=== PATIENT | male | born 1975 | race Caucasian/White ===

== ENCOUNTER 2018-09-16 23:43 | Emergency (ER) | payer OTHER, BC ==
[~2018-09-16] VITALS: Ht 172.7 cm; Wt 127.0 kg
[2018-09-17] MEDS ORDERED: IBUP800 PO (01:34)
[2018-09-17] MEDS ORDERED: CYCL10 PO (01:34)
[2018-10-06] MEDS ORDERED: PROP10 (08:10)
[2018-10-06] MEDS ORDERED: Sulindac200 MG (08:10)
[2018-10-06] MEDS ORDERED: PANT40 (08:10)
[2018-10-06] MEDS ORDERED: DAILY MULTIPLE1 EACH (08:11)
[2018-10-06] MEDS ORDERED: NEXIUM 24HR20 M2 (08:11)
== END 2018-09-17 02:43 | disposition home or self-care (01) ==
LOC: ER 23:43
DX: S39.012A Strain of muscle, fascia and tendon of lower back, initial encounter (principal); Z87.891 Personal history of nicotine dependence; W18.30XA Fall on same level, unspecified, initial encounter
CPT/HCPCS: 72100; 96372; 99283-25; J1100; J1885; J3010

== ENCOUNTER 2018-10-11 13:37 | Day surgery (SDC) | payer OTHER ==
[~2018-10-11] VITALS: Ht 172.7 cm; Wt 63.5 kg
[~2018-10-11 13:37] MED LIST: CYCL10 PO; DAILY MULTIPLE1 EACH; IBUP800 PO; NEXIUM 24HR20 M2; PANT40; PROP10; Sulindac200 MG
[2018-10-11] MEDS ORDERED: RANI150EL PO (13:52)
--- NOTE | 2018-10-11 14:18 | NUR ---
10/11/18 1418 Devika Juarez V PT RESTING IN BED, SIDE RAILS IN PLACE, CALL LIGHT WITHIN REACH, VSS. PT TEACHING COMPLETED, PT DENIES PAIN, DISCOMFORT, AND QUESTIONS AT THIS TIME.
== END 2018-10-11 15:15 | disposition home or self-care (01) ==
LOC: ORSCSDS 13:37
PROVIDERS: Internal Medicine Gastroenterology
PROC: 0DB68ZX Excision of Stomach, Via Natural or Artificial Opening Endoscopic, Diagnostic (ICD-10-PCS; principal; 2018-10-11 15:00)
DX: K21.9 Gastro-esophageal reflux disease without esophagitis (principal); K31.9 Disease of stomach and duodenum, unspecified; G47.33 Obstructive sleep apnea (adult) (pediatric); I10 Essential (primary) hypertension; E66.01 Morbid (severe) obesity due to excess calories; Z68.41 Body mass index [BMI] 40.0-44.9, adult; Z79.899 Other long term (current) drug therapy
CPT/HCPCS: 88305; 88342; J7120